=== PATIENT | female | born 1970 | race Caucasian/White ===

== ENCOUNTER 2020-08-16 08:01 | Outpatient (REF) | payer MEDICARE, MEDICAID, SELFPAY ==
[2020-08-16 09:07] LABS: MANUAL DIFF FLAG NO
[2020-08-16 09:09] LABS: Basophils Percent Auto 0.7 % (0-2); Eosinophils Absolute Auto 0.3 X10*3/uL (0.0-0.4); Eosinophils Percent Auto 4.3 % (0-4); Hematocrit 41.2 % (37-47); Imm Gran Abs Auto 0.01 X10*3/uL (0.00-0.03); Imm Gran Pct Auto 0.2 % (0.0-0.4); Lymphocytes Absolute Auto 1.5 X10*3/uL (1.2-4.9); Lymphocytes Percent Auto 26.5 % (20-40); Mean Corpuscular HGB Conc 31.6 g/dl (31.0-35.0); Mean Corpuscular Volume 85.7 fL (80-98); Mean Platelet Volume 9.1 fL (9.4-12.3); Monocytes Absolute Auto 0.5 X10*3/uL (0.1-1.2); Neutrophils Absolute Auto 3.5 X10*3/uL (2.0-8.3); Neutrophils Percent Auto 60.3 % (45-73); Platelet Count 304 X10*3/uL (160-400); Red Blood Count 4.81 X10*6/uL (4.20-5.50); Red Cell Distribution Width 13.1 % (11.0-16.0); White Blood Count 5.8 X10*3/uL (4.8-10.8)
[2020-08-16 09:42] LABS: Alanine Aminotransferase 53 U/L (0-31); Alkaline Phosphatase 167 U/L (39-117); Anion Gap 9 (12-20); Aspartate Amino Transferase 44 U/L (5-31); Bilirubin Total 0.4 mg/dL (0.0-1.0); Blood Urea Nitrogen 13 mg/dL (9-16); C Reactive Protein 1.26 mg/dL (< or = 0.50); Calcium 8.7 mg/dL (8.4-10.2); Carbon Dioxide 26 mmol/L (22-29); Chloride 109 mmol/L (96-108); Estimated Glomerular Filt Rate 50; Glucose Random 117 mg/dL (60-115); Potassium 4.3 mmol/L (3.3-5.1); Sodium 140 mmol/L (135-145); Total Protein 7.4 g/dL (6.5-8.0)
[2020-08-16 09:54] LABS: Glucose Urine UA NEG (NEG); Leukocyte Esterase Urine NEG (NEG); Nitrite Urine NEG (NEG); PH 5.5 (5.0-8.0); Specific Gravity - Urine >= 1.030 (1.005-1.025); Urine Blood NEG (NEG); Urine Ketones NEG (NEG); Urine Protein NEG (NEG-TRACE)
[2020-08-16 09:58] LABS: Appearance Urine HAZY; Color Urine YELLOW
[2020-08-16 10:11] LABS: Erythrocyte Sedimentation Rate 28 MM/HR (0-20)
[2020-08-16 10:12] LABS: Bacteria Urine 1+ /LPF; Mucus Urine 1+ /LPF; RBC Urine 0-2 /HPF (0); Squamous Epithelial Cell Urine 2+ /LPF; WBC Urine 0-2 /HPF (0-4)
[2020-08-17 13:12] LABS: Anti DNA DS Antibody 2 IU/mL; SM/Ribonucleoprotein Ab <1.0 NEG AI (<1.0 NEG); Smith Protein <1.0 NEG AI (<1.0 NEG)
[2020-08-17 17:56] LABS: Complement C3 159 mg/dL (83-193)
== END 2020-08-16 08:02 | disposition home or self-care (01) ==
LOC: HO.LAB 08:01
PROVIDERS: PCP Nurse Practitioner Family; Visit Provider Student in an Organized Health Care Education/Training Program
DX: M35.00 Sjogren syndrome, unspecified (principal); M35.3 Polymyalgia rheumatica; Z87.891 Personal history of nicotine dependence; Z88.8 Allergy status to other drugs, medicaments and biological substances; Z79.899 Other long term (current) drug therapy
CPT/HCPCS: 36415; 80053; 81001; 85025; 85652; 86140; 86160; 86225; 86235; 99212

== ENCOUNTER 2024-04-20 10:50 | Outpatient (AMB) | payer OTHER, SELFPAY ==
[2024-04-20 11:24] VITALS: BP 130/68; PULSE 58; O2SAT 100; BMI 34.8
--- NOTE | 2024-04-20 11:24 | MHC.OFFVIS ---
Vital Signs 04/20/24 11:24 Height 5 ft 4 in Weight 202 lb 13.204 oz BMI 34.8 BP 130/68 Blood Pressure Location Lt brachial Position Sitting Pulse 58 Pulse Source Pulse Oximeter Pulse Oximetry (%) 100 Oxygen Delivery Method Room Air Intake Visit Reasons: SS Intake Note: Patient presents today for re-establishment of care as referred by her PCP Dr. Brannon. She was diagnosed with Sjorgen's, and was last seen in this practice on 08/16/[address] Ordonez. Allergies doxycycline Allergy (Intermediate, Verified 04/20/24 11:29) nausea and vomiting Medication List - Last Reconciled 04/20/24 by Moshe Becker MD 5-hydroxytryptophan (5-HTP) 100 mg PO DAILY acetaminophen ER 650 mg PO Q8H albuterol sulfate 90 mcg/actuation (Ventolin HFA) 2 puffs inhalation Q6H PRN amitriptyline 10 mg PO BEDTIME apixaban (Eliquis) 5 mg PO BID bupropion HCl 100 mg PO .once a day cariprazine (Vraylar) 3 mg PO DAILY clonidine HCl 0.1 mg PO BID dextroamphetamine-amphetamine 10 mg (Adderall) 20 mg PO BID dextroamphetamine-amphetamine 25 mg ER (Adderall XR) 25 mg PO DAILY gabapentin 400 mg PO BID PRN lamotrigine 150 mg PO BID lifitegrast 5% (Xiidra) 1 drp ophthalmic (eye) BID naltrexone 50 mg PO DAILY peg 400-propylene glycol 0.4-0.3 % (Systane (propylene glycol)) 1 drp ophthalmic (eye) BID-QID PRN pilocarpine HCl 5 mg PO TID topiramate 100 mg PO BID topiramate 100 mg PO BID HPI HPI SS: Details: Patient was previously diagnosed with Sjogren syndrome by Dr. Ordonez. She has sicca symptoms with dry eyes and dry mouth. She also reports history of Raynaud's phenomena affecting her hands and feet (hands turn red) that started 2 years ago. Her trigger is cold weather. She has been on pilocarpine in the past with benefit. She has currently on Xiidra prescribed by her privacy manager for dry eyes. She was told she had antiphospholipid syndrome. She suffered a stroke with residual facial droop at the age of 47 in 2017. A year before she had her stroke she was told she had antiphospholipid syndrome by a lemon grower. She denies having DVT or PE. She had 1 miscarriage at the age of 16 at 3 months. She does not know if she had positive antibodies for antiphospholipid syndrome. She has been on anticoagulation with Eliquis since her stroke. She denies fevers, oral ulcers. She has a facial rash and will be seeing Dermatology in May for evaluation. Denies paresthesia. When she has active Raynaud's she has numbness in her hands. Denies headaches, urinary symptoms, abdominal pain, joint pain or joint swelling at this time. [facility] Medical History (Updated 04/20/24 @ 22:48 by Moshe Becker MD) Sjogrens syndrome Social History (Updated 08/16/20 @ 08:25 by Sarthak Velasquez LPN) Alcohol intake: never Review of Systems Const All systems reviewed & are unremarkable except as noted in HPI and below Physical Exam Vital Signs: Last Vital Signs Pulse 58 04/20/24 11:24 BP 130/68 04/20/24 11:24 Pulse Ox 100 04/20/24 11:24 Oxygen Delivery Method Room Air 04/20/24 11:24 BMI result Body Mass Index 34.8 Const Other: Facial droop affecting mouth General: cooperative and healthy appearing Resp Effort & Inspection: normal respiratory effort Auscultation: clear to auscultation bilaterally Cardio Rate: regular rate Rhythm: regular rhythm Heart sounds: S1 normal heart sound present and S2 normal heart sound present Skin Other: Erythema noted around her mouth Extrem Other: No synovitis of any joints. No tender joints. Good range of motion of lower extremity. Shoulder abduction right 120, left 110 degrees with pain. Assessment & Plan Assessment & Plan (1) Sjogrens syndrome: Comment: Patient has past history of being diagnosed with Sjogren syndrome. Dry mouth is uncontrolled. She has found relief since she has been on Xiidra for dry eyes. I will obtain baseline serologies this visit. Code(s): M35.00 - Sjogren syndrome, unspecified Category: Medical Qualifiers: Sjogren's organ involvement: unspecified organ involvement Qualified Code(s): M35.00 - Sicca syndrome, unspecified Plan: She will continue to follow up with privacy manager for dry eye management I will prescribed pilocarpine 5 mg t.i.d. for dry mouth Baseline labs ordered this visit including SSA/SSB antibody, SERENA and rheumatoid factor (2) Antiphospholipid syndrome: Comment: By history she has had 2 clinical events: She has had a thrombotic event with stroke at age 47 on Eliquis. She has also had a loss at 3 months. I will obtain further workup with antiphospholipid antibodies this visit Code(s): D68.61 - Antiphospholipid syndrome Category: Medical Plan: Labs ordered Return to clinic in 1-2 months to review results Plan . Orders: Orders Aspartate Amino Transferase 04/20/24 D68.61 - Antiphospholipid syndrome, M35.00 - Sjogren syndrome, unspecified Complement C4 04/20/24 D68.61 - Antiphospholipid syndrome, M35.00 - Sjogren syndrome, unspecified Complete Blood Count Auto Diff 04/20/24 D68.61 - Antiphospholipid syndrome, M35.00 - Sjogren syndrome, unspecified Erythrocyte Sedimentation Rate 04/20/24 D68.61 - Antiphospholipid syndrome, M35.00 - Sjogren syndrome, unspecified SERENA Reflex Titer and Pattern 04/20/24 D68.61 - Antiphospholipid syndrome, M35.00 - Sjogren syndrome, unspecified Lupus Anticoagulant Panel 04/20/24 D68.61 - Antiphospholipid syndrome, M35.00 - Sjogren syndrome, unspecified Beta-2 Glycoprotein Antibody 04/20/24 D68.61 - Antiphospholipid syndrome, M35.00 - Sjogren syndrome, unspecified Cardiolipin Antibodies 04/20/24 D68.61 - Antiphospholipid syndrome, M35.00 - Sjogren syndrome, unspecified Rheumatoid Factor 04/20/24 M35.00 - Sjogren syndrome, unspecified Alanine Aminotransferase 04/20/24 D68.61 - Antiphospholipid syndrome, M35.00 - Sjogren syndrome, unspecified C Reactive Protein 04/20/24 D68.61 - Antiphospholipid syndrome, M35.00 - Sjogren syndrome, unspecified Complement C3 04/20/24 D68.61 - Antiphospholipid syndrome, M35.00 - Sjogren syndrome, unspecified Creatinine 04/20/24 D68.61 - Antiphospholipid syndrome, M35.00 - Sjogren syndrome, unspecified Sjogren's Antibodies 04/20/24 M35.00 - Sjogren syndrome, unspecified Medications: Refilled pilocarpine HCl 5 mg PO TID 90 tabs 5RF M35.00 - Sjogren syndrome, unspecified Coding Level of Care Code New Pt Level 4 (63911) Diagnoses Sjogren's syndrome, with unspecified organ involvement M35.00 Sjogren's organ involvement: unspecified organ involvement Antiphospholipid syndrome D68.61
== END 2024-04-20 12:20 | disposition home or self-care (01) ==
PROVIDERS: PCP Nurse Practitioner Family; Visit Provider Internal Medicine Rheumatology
DX: M35.00 Sjogren syndrome, unspecified (principal); D68.61 Antiphospholipid syndrome
CPT/HCPCS: 99204

== ENCOUNTER → 2024-04-20 10:50 | Outpatient (BNVA) | payer OTHER, SELFPAY | PROVIDERS: PCP Nurse Practitioner Family; Visit Provider Internal Medicine Rheumatology | DX: M35.01 Sjogren syndrome with keratoconjunctivitis (principal); D68.61 Antiphospholipid syndrome; I73.00 Raynaud's syndrome without gangrene | CPT/HCPCS: 99202 ==